=== PATIENT | male | born 1995 | race Caucasian/White ===

== ENCOUNTER 2021-03-31 01:59 | Emergency (ER) | payer OTHER, SELFPAY ==
[2021-03-31 02:01] VITALS: BP 126/73; PULSE 66; RESP 16; TEMP 36.4; O2SAT 98
--- NOTE | 2021-03-31 03:16 | ED.URI ---
HPI - URI/Sore Throat General Chief Complaint: Upper Respiratory Infection Stated Complaint: swollen throat Time Seen by Provider: 03/31/21 03:12 History of Present Illness HPI Narrative: Sore throat and swollen tonsils for 3 days. Negative swabs for strep and covid. Started on prednisone. symptoms getting worse. h/o reccurent strep infections. Related Data Allergies Allergy/AdvReac Type Severity Reaction Status Date / Time No Known Allergies Allergy Verified 03/31/21 02:04 Review of Systems Review of Systems: All systems reviewed & are unremarkable except as noted in HPI and below Constitutional: Constitutional: Denies fever(s) ENT: Reports sore throat Cardiovascular: Cardiovascular: Denies chest pain Respiratory: Respiratory: Denies cough and Denies dyspnea Gastrointestinal: Gastrointestinal: Denies nausea PMFSH Social History Social History Gender identity (if verbalized by the patient): Male Sexual Orientation (if Verbalized by the Patient): Straight or Heterosexual Exam Const: General: no acute distress and alert Orientation/consciousness: patient oriented x3 HENMT: Head: normal to inspection Ears: TM's normal bilaterally and EAC's normal Throat: uvula midline, abnormal tonsil bilateral erythema, exudates, hypertrophy and crypts and posterior oropharynx abnormal erythema and exudates Eyes: Pupils: Equal, round and reactive pupils present Neck: Neck: lymphadenopathy Resp: Effort & Inspection: normal respiratory effort Auscultation: clear to auscultation bilaterally Cardio: Rate: regular rate Rhythm: regular rhythm Skin: General skin exam: normal color Neuro: General: patient oriented x3 and moves all extremities Speech: normal speech Extrem: General: normal to inspection Course Vital Signs Vital signs: Vital Signs Temperature 36.4 C 03/31/21 02:01 Pulse Rate 66 03/31/21 02:01 Respiratory Rate 16 03/31/21 02:01 Blood Pressure 126/73 03/31/21 02:01 Pulse Oximetry 98 03/31/21 02:01 Temperature 36.4 C 03/31/21 02:01 Pulse Rate 66 03/31/21 02:01 Respiratory Rate 16 03/31/21 02:01 Blood Pressure 126/73 03/31/21 02:01 Pulse Oximetry 98 03/31/21 02:01 MDM - URI/Sore Throat Medical Records Attestation: I reviewed the patient's medical records. Discharge Plan Discharge Clinical Impression: Tonsillitis Patient Disposition: Home, Self-Care Condition: Stable Instructions: Antibiotic Form, Tonsillitis (ED) Prescriptions: New amoxicillin-pot clavulanate [Augmentin] 875-125 mg tablet 1 tablet PO Q12H Qty: 14 RF: 0 Follow-up/Referrals: PHYSICIAN NOT ON STAFF,NONSTAFF [Non-Staff] -
[2021-03-31] MEDS: DEXAMETHASONE SOD PHOS INJ 4 MG/ML VIAL 10 MG IM (03:28)
[2021-03-31] MEDS: AMOXICILLIN/CLAVULANATE K 875-125 MG TAB 1 TABLET PO (03:28)
== END 2021-03-31 03:53 | disposition home or self-care (01) ==
LOC: ANHED 03:42
PROVIDERS: Emergency Provider Emergency Medicine
DX: J03.90 Acute tonsillitis, unspecified (principal)
CPT/HCPCS: 96372; 99283; A9270; J1100

== ENCOUNTER 2021-04-02 14:12 | Emergency (ER) | payer OTHER, SELFPAY ==
--- NOTE | ~2021-04-02 | CT_ITS ---
EXAMINATION: CT soft tissue neck w con EXAM DATE: 04/02/2021 15:40 INDICATION: Throat pain. TECHNIQUE: Spiral CT of the neck was performed following intravenous injection of 75 mL Omnipaque 350 . Axial, coronal and sagittal images were reviewed. The dose-length product (DLP) for this examinat ion was 503.45 mGy-cm. The exposure was tailored according to patient size (auto mA exposure control ), and iterative reconstruction (ASIR) was used as additional dose reduction technique. There is no prior study for comparison. FINDINGS: The left tonsil is enlarged with central relatively well-defined hypodense region measuring 2.1 x 1.6 cm, consistent with phlegmon and early organizing abscess, possible drainable collection. Some reactive left internal jugular chain lymphadenopathy more than right. Epiglottis is normal in thickness as are the aryepiglottic folds. The thyroid gland is unremarkable. The submandibular and parotid glands are symmetric. The superior mediastinum is unremarkable. Parapharyngeal and pre-glottic fat planes are preserved. The opacified vasculature is patent, no j ugular venous thrombosis The orbits are unremarkable. Visualized sinuses and mastoid air cells are well aerated. Lung apices are clear. There is cervical spondylosis. IMPRESSION: Enlarged left tonsil with central low density, phlegmon and early organizing abscess. Po ssibly drainable. Reactive lymphadenopathy. Reviewed, dictated and finalized at location B. IMPRESSION: Enlarged left tonsil with central low density, phlegmon and early organizing abscess. Possibly drainable. Reactive lymphadenopathy.
[2021-04-02 14:15] VITALS: BP 122/64; PULSE 76; RESP 16; TEMP 36.2; O2SAT 98
--- NOTE | 2021-04-02 14:47 | ED.GENADULT ---
HPI - General Adult General Chief complaint: Unspecified Stated complaint: throat swelling Time Seen by Provider: 04/02/21 14:14 Source: patient, RN notes reviewed and old records reviewed Mode of arrival: ambulatory Limitations: no limitations History of Present Illness HPI narrative: This is a 25 year old male who presents for evaluation of throat swelling. He states he has had a sore throat since Monday. He reports negative strep test x 3 . He was evaluated in [facility] 2 days for his sore throat. He was started on Augmentin at that time. He has return to day because he is having pain with swallowing and he thinks his swelling is worse. He denies fever, nausea, vomiting. He was given prednison 4 days ago and he was given decadron 2 days ago. He has been taking ibuprofen for his pain. Related Data Allergies Allergy/AdvReac Type Severity Reaction Status Date / Time No Known Allergies Allergy Verified 04/02/21 14:52 Review of Systems Review of Systems: All systems reviewed & are unremarkable except as noted in HPI and below PMFSH Past Medical History Medical History (Updated 04/02/21 @ 17:56 by Isabela Bowers MD) Tonsillitis Social History Social History Gender identity (if verbalized by the patient): Male Exam Const: General: cooperative, healthy appearing, comfortable, no acute distress, alert, awake and Physically active HENMT: Head: normocephalic and atraumatic Ears: TM's normal bilaterally Face and sinus: face symmetric Mouth: Yes lip normal, Yes tongue normal, No trismus and No restricted motion Throat: uvula midline, abnormal tonsil on the left erythema and hypertrophy and bilateral erythema and peritonsillar mass on the left Eyes: EOM: EOM abnormal Neck: Neck: normal visual inspection and full ROM Resp: Effort & Inspection: normal respiratory effort, able to speak in complete sentences and no audible wheezes Auscultation: clear to auscultation bilaterally Cardio: Rate: regular rate Rhythm: regular rhythm Heart sounds: S1 normal heart sound present GI: Inspection: normal to inspection Auscultation: normal bowel sounds Back/Spine/Pelvis: Back: no CVA tenderness Neuro: General: oriented to person, oriented to place, oriented to time, patient oriented x3 and gait normal Cranial nerves: Yes CN's II-XII intact bilaterally Motor exam (neuro): 5/5 motor strength present throughout Course Reevaluation(s) Reevaluation #1: Patient is able to speak and swallow. No trismus , no muffled voiced. Ct shows phlegmon so since negative aspiration likely not organized abscess yet. He was given discharge and return precaution. Dr. Welsh states patient can be seen in clinic on Monday Date: 04/02/21 Time: 17:50 Vital Signs Vital signs: Vital Signs Temperature 97.1 F L 04/02/21 14:15 Pulse Rate 76 04/02/21 14:15 Respiratory Rate 16 04/02/21 14:15 Blood Pressure 122/64 04/02/21 14:15 Pulse Oximetry 98 04/02/21 14:15 Temperature 97.9 F 04/02/21 18:04 Pulse Rate 82 04/02/21 18:04 Respiratory Rate 18 04/02/21 18:04 Blood Pressure 110/46 L 04/02/21 18:04 Pulse Oximetry 99 04/02/21 18:04 Procedures Abscess I/D left peritonsillar: Date of Incision: 04/02/21 Time of Incision: 17:00 Side (if applicable): left Local Anesthetic: other anesthetic Technique: needle aspiration Irrigation: No Packing used?: none I&D Results: Nothing Abcess I&D Additional Comments: left peritonsillar swelling anesthesized with cetacaine. Performed needle aspiration with 18 guage need, no blood or pus aspirated. Attempted upper and medial pole, negative aspiration Medical Decision Making Vital Signs Vital Signs: Vital Signs Temperature 97.1 F L 04/02/21 14:15 Pulse Rate 76 04/02/21 14:15 Respiratory Rate 16 04/02/21 14:15 Blood Pressure 122/64 04/02
[2021-04-02] MEDS: KETOROLAC 30 MG/ML VIAL (*BKC) IV PUSH (14:50)
[2021-04-02 14:55] LABS: Basophils Absolute Auto 0.1 K/mm3 (0.0-0.1); Basophils Percent Auto 0.7 % (0.2-1.2); Eosinophils Absolute Auto 0.1 K/mm3 (0-0.3); Eosinophils Percent Auto 0.9 % (0-4.4); Hematocrit 46.2 % (42.0-52.0); Hemoglobin 15.2 g/dL (14.0-18.0); Immature Granulocyte Absolute 0.12 K/mm3 (0.00-0.031); Immature Granulocyte Percent A 0.9 % (0-0.5); Lymphocytes Absolute Auto 3.18 K/mm3 (0.9-3.2); Lymphocytes Percent Auto 24.8 % (18.3-44.2); Mean Corpuscular HGB Conc 32.9 g/dl (32-36); Mean Corpuscular Hemoglobin 28.8 pg (26-34); Mean Corpuscular Volume 87.7 fl (80-100); Mean Platelet Volume 10.1 fl (7.4-10.4); Monocytes Absolute Auto 1.6 K/mm3 (0.1-0.6); Monocytes Percent Auto 12.5 % (2.6-8.5); Neutrophils Absolute Auto 7.7 K/mm3 (1.3-6.7); Neutrophils Percent Auto 60.2 % (45.5-73.1); Platelet Count Result 340 k/mm3 (150-375); Red Blood Count 5.27 M/mm3 (4.6-6.20); Red Cell Distribution Width 14.3 % (11.5-14.5); White Blood Count 12.8 K/mm3 (4.5-10.0)
[2021-04-02] MEDS: ONDANSETRON INJ 4 MG/2 ML VIAL IV PUSH (14:55)
[2021-04-02] MEDS: CLINDAMYCIN 900 MG/D5W 50 ML 900 MG/50 ML PIGGYBACK 50 MG IVPB (14:55)
[2021-04-02 15:09] LABS: Alanine Aminotransferase 60 U/L (4-50); Albumin Level 3.9 g/dL (3.5-5.1); Alkaline Phosphatase 37 U/L (38-126); Anion Gap 6 mmol/L (8-16); Aspartate Amino Transferase 48 U/L (17-59); Bilirubin,Total 0.5 mg/dL (0.2-1.3); Blood Urea Nitrogen 20 mg/dL (9-20); Calcium 8.6 mg/dL (8.4-10.2); Carbon Dioxide 29 mmol/L (22-30); Chloride 102 mmol/L (98-107); Estimated CRCL calculation 97 ml/min; Estimated Glomerular Filt Rate > 60; Glucose 86 mg/dL (65-110); Potassium 4.2 mmol/L (3.4-5.0); Sodium 137 mmol/L (137-145)
[2021-04-02 17:31] LABS: Monoscreen Positive (Negative); Negative Monotest Control Negative (Negative); Positive Monotest Control Positive (Positive)
[2021-04-02 18:04] VITALS: BP 110/46; PULSE 82; RESP 18; TEMP 36.6; O2SAT 99
== END 2021-04-02 18:06 | disposition home or self-care (01) ==
PROVIDERS: Emergency Provider General Practice
DX: J36 Peritonsillar abscess (principal); B27.90 Infectious mononucleosis, unspecified without complication
CPT/HCPCS: 36415; 42700; 70491; 80053; 85025; 86308; 96365; 96372; 96375; 99284; A9270; J1100; J1885; J2405; Q9967

== ENCOUNTER 2022-08-03 19:16 | Emergency (ER) | payer OTHER, SELFPAY ==
[2022-08-03 19:23] VITALS: BP 119/56; PULSE 83; RESP 16; TEMP 38.4; O2SAT 99
[2022-08-03 19:25] VITALS: PULSE 93; RESP 22; O2SAT 98
--- NOTE | 2022-08-03 20:52 | ED.URI ---
HPI - URI/Sore Throat General Chief Complaint: Upper Respiratory Infection Stated Complaint: Cough/Chest Congestion Time Seen by Provider: 08/03/22 20:52 Source: patient Mode of arrival: ambulatory Limitations: no limitations History of Present Illness HPI Narrative: 26-year-old male presented for complaints of chest tightness since yesterday. Patient states he was triggered when he went into someone's house who smokes. He endorses feeling chest tightness at the center of his chest from the esophagus to the sternum. Also endorses generalized malaise and chills. He denies shortness of breath, wheezing, nausea, vomiting, diarrhea. Denies sick contacts. Not taking anything for symptoms. Denies history of asthma. Related Data Allergies Allergy/AdvReac Type Severity Reaction Status Date / Time No Known Allergies Allergy Verified 08/03/22 20:08 Review of Systems Review of Systems: ROS per HPI. All systems reviewed & are unremarkable except as noted in HPI and below PMFSH Past Medical History Medical History Tonsillitis Social History Social History Gender identity (if verbalized by the patient): Male Sexual Orientation (if Verbalized by the Patient): Straight or Heterosexual Comments At time of signature, I have reviewed and agree with nursing past medical, surgical, social and family history unless otherwise noted. Please see nursing chart for further information. There is no relevant family history pertinent to the presenting complaint Exam Narrative: GENERAL: Well-appearing, in no acute distress. EYES: EOMI. No redness or drainage. Conjunctivae normal. ENT: Mucous membranes pink and moist. No rhinorrhea. TMs normal bilaterally. Throat normal. Uvula midline. NECK: Normal AROM. Supple. CHEST: No respiratory distress. Diminished to all douglass. Rare cough. HEART: Regular rate and rhythm. No murmur appreciated. ABDOMEN: Soft, nontender, nondistended, normal active bowel sounds. EXTREMITIES: Normal range of motion. No edema. SKIN: Warm, dry, no rash. Capillary refill normal. Normal skin turgor. NEURO: Alert and oriented x3. Gait steady. PSYCH: Normal affect. Course Course Emergency Course: Patient is aware of diagnosis, understands and agrees to treatment plan. Anticipatory guidance given. Patient agrees to follow-up as directed and is aware of reasons to seek care at the emergency department. Portions of this record may have been created with voice recognition software Level of Care: Express Care Visit Vital Signs Vital signs: Vital Signs Temperature 101.1 F H 08/03/22 19:23 Pulse Rate 83 08/03/22 19:23 Respiratory Rate 16 08/03/22 19:23 Blood Pressure 119/56 L 08/03/22 19:23 Pulse Oximetry 99 08/03/22 19:23 Oxygen Delivery Room Air 08/03/22 19:23 Temperature 101.1 F H 08/03/22 19:23 Pulse Rate 93 08/03/22 19:25 Respiratory Rate 22 H 08/03/22 19:25 Blood Pressure 119/56 L 08/03/22 19:23 Pulse Oximetry 98 08/03/22 19:25 Oxygen Delivery Room Air 08/03/22 19:25 MDM - URI/Sore Throat MDM Narrative Medical decision making narrative: Positive for influenza. Reported improvement in breathing after Albuterol neb treatment. PO prednisone given. Advised supportive measures and signs/symptoms to go to the ER. Pt is appropriate for outpt treatment and f/u. Differential Diagnosis Differential diagnosis: Likely upper respiratory infection, viral infection, bronchitis and influenza Lab Data Labs: Influenza A Screen Positive Reference Range: Negative Influenza B Screen Negative Reference Range: Negative Discharge Plan Discharge Clinical Impression: Influenza Patient Disposition: Home, Self-Care Condi
[2022-08-03] MEDS: ALBUTEROL SULFATE NEB 2.5 MG/3 ML INH INHALATION (21:02)
[2022-08-03] MEDS: predniSONE 20 MG TABLET 60 MG PO (21:02)
== END 2022-08-03 21:29 | disposition home or self-care (01) ==
PROVIDERS: Emergency Provider Nurse Practitioner Family
DX: J10.1 Influenza due to other identified influenza virus with other respiratory manifestations (principal)
CPT/HCPCS: 87804; 94640; 99213; G0463; J7512

== ENCOUNTER 2025-08-09 16:06 | Emergency (ER) | payer OTHER, SELFPAY ==
[2025-08-09 16:20] VITALS: BP 131/74; PULSE 79; RESP 18; TEMP 36.2; O2SAT 98
--- NOTE | 2025-08-09 16:22 | ED_ITS ---
HPI - URI/Sore Throat General Chief Complaint: Upper Respiratory Infection Stated Complaint: Sore Throat Time Seen by Provider: 08/09/25 16:22 Source: patient Mode of arrival: ambulatory Limitations: no limitations History of Present Illness HPI Narrative: 29 yo M presents with c/o scratchy throat for 3 days. No other symptoms. States that his at strep throat. All systems reviewed and negative except as noted above. Related Data Home Medications ?Medication ?Instructions ?Recorded ?Confirmed ?Last Taken ?Type No Home Medications 08/09/25 08/09/25 U nknown History Allergies Allergy/AdvReac Type Severity Reaction Status Date / Time No Known Allergies Allergy Verified 08/09/25 16:22 [facility] Past Medical History Medical History Tonsillitis Social History Social History Gender identity (if verbalized by the patient): Male Sexual Orientation (if Verbalized by the Patient): Straight or Heterosexual Comments At time of signature, agree with nursing past medical, surgical, social and family history. There is no relevant family history pertinent to the presenting complaint. Exam Narrative: GENERAL: This is a well-nourished, well-developed patient, in no apparent distress. HEAD: normocephalic, atraumatic. EYES: PERRL. Sclera clear/white. Vision is grossly intact. EARS: External ears normal, auditory canals clear and without drainage, TMs normal without perforation. Hearing grossly intact. NOSE: External nose normal with no obvious nasal discharge, nares without redness, no rhinorrhea. THROAT: Mucous membranes moist, posterior pharynx clear. NECK: Neck supple, non-tender without lymphadenopathy, masses or thyromegaly. CARDIOVASCULAR: Regular rate and rhythm without murmurs, gallops, or rubs. RESPIRATORY: Clear to auscultation. Breath sounds equal bilaterally. No wheezes, rales, or rhonchi. SKIN: warm, Dry, intact with no suspicious lesions or rash, good texture and turgor. NEURO: awake, alert, and oriented to person, place and time. There were no obvious focal neurologic abnormalities. EXTREMITIES: No joint tenderness, effusion, or edema noted. Course Course Level of Care: Express Care Visit Vital Signs Vital signs: Vital Signs Temperature 36.2 C L 08/09/25 16:20 Pulse Rate 79 08/09/25 16:20 Respiratory Rate 18 08/09/25 16:20 Blood Pressure 131/74 08/09/25 16:20 Pulse Oximetry 98 08/09/25 16:20 Oxygen Delivery Room Air 08/09/25 16:20 Temperature 36.2 C L 08/09/25 16:20 Pulse Rate 79 08/09/25 16:20 Respiratory Rate 18 08/09/25 16:20 Blood Pressure 131/74 08/09/25 16:20 Pulse Oximetry 98 08/09/25 16:20 Oxygen Delivery Room Air 08/09/25 16:20 Reviewed MDM MDM Narrative Medical decision making narrative: negative rapid strep. Strep culture ordered. Patient is well-appearing. Will wait for strep culture prior to treating with antibiotic. Differential Diagnosis Differential Diagnosis: Differential diagnostic considerations for upper respiratory infection include upper respiratory infection, croup, otitis media, sinusitis, viral infection, bronchitis, influenza, pharyngitis, strep, uvulitis.? Lab Data Labs: Lab Results 08/09/25 Range/Units 16:36 POC Grp A Strep Screen Negative (Negative) Discharge Plan Discharge Clinical Impression: Acute viral pharyngitis Patient Disposition: Home Condition: Stable Instructions: Pharyngitis (ED) Additional Instructions: Your strep test was negative today. A strep culture was ordered and results will take 48-72 hours. If your strep culture is positive we will call you at that time and prescribed an antibiotic. Patient Language: Malawian Prescriptions: No Action No Home Medications Follow-up/Referrals: UNKNOWN,DOCTOR [Primary Care Provider] Time of Disposition: 16:38
[2025-08-09 16:38] LABS: EDSTREPNEGPOS1 Negative (Negative)
== END 2025-08-09 16:43 | disposition home or self-care (01) ==
PROVIDERS: Emergency Provider Nurse Practitioner Family
DX: J02.8 Acute pharyngitis due to other specified organisms (principal)
CPT/HCPCS: 87880; 99213; G0463